=== PATIENT | female | born 1990 | race Hispanic/Latino ===

== ENCOUNTER 2025-01-22 15:35 | Outpatient (CLI) | payer SELFPAY ==
--- NOTE | ~2025-01-22 | XR_ITS ---
Lumbosacral Spine: AP and lateral views Clinical History: Pain Findings: The normal lordotic curve is maintained. No acute fracture seen. There are probable L5 pars interarticularis defects bilaterally, with minimal grade 1 anterolisthesis of L5 over S1. There is m oderate facet arthropathy from L3 through L5. The sacroiliac joints are normally outlined. Impression: Probable bilateral L5 pars interarticularis defects, with minimal grade 1 anterolisthesis of L5 over S1. Additional facet arthropathy, as above. Reviewed, dictated and finalized at location M. Impression: Probable bilateral L5 pars interarticularis defects, with minimal grade 1 anter olisthesis of L5 over S1. Additional facet arthropathy, as above.
== END 2025-01-22 15:36 | disposition home or self-care (01) ==
PROVIDERS: PCP Chiropractor Rehabilitation; Visit Provider Chiropractor Rehabilitation
DX: M54.50 Low back pain, unspecified (principal)
CPT/HCPCS: 72100